=== PATIENT | female | born 1990 ===

== ENCOUNTER → 2023-04-08 08:24 | Outpatient (CLI) | payer BC, SELFPAY ==
--- NOTE | ~2023-04-08 | MR_ITS ---
MRI of the left ankle Clinical history: Pain Technique: Coronal proton-density and proton-density fat-sat images, axial proton-density and proton- density fat-sat images, and sagittal proton-density and proton-density fat-sat images were acquired. Findings: Syndesmotic ligaments are intact. Anterior and posterior talofibular ligament are intact. C alcaneofibular ligament is intact. Deltoid ligament is intact. Medial flexor tendons, peroneal tendons, and anterior extensor tendons are intact. There is full-thic kness tear of the Achilles tendon. There is an approximately 4 cm fluid-filled gap, with tear beginni ng approximately 5.5 cm proximal to the distal Achilles insertion. No osteochondral lesion of the talar dome. Bone marrow signals are unremarkable. Joint spaces are pre served. Plantar fascia intact. Normal signal preserved in the sinus Tarsi. Impression: Complete rupture of the Achilles tendon, as detailed above. Reviewed, dictated and finalized at location . Impression: Complete rupture of the Achilles tendon, as detailed above.
== END ==
PROVIDERS: PCP Orthopaedic Surgery; Visit Provider Orthopaedic Surgery
DX: M25.572 Pain in left ankle and joints of left foot (principal); S86.012A Strain of left Achilles tendon, initial encounter
CPT/HCPCS: 73721